=== PATIENT | male | born 1975 | race Asian ===

== ENCOUNTER → 2017-10-06 10:33 | Outpatient (CLI) | payer BC | END | disposition home or self-care (01) | LOC: D.CT 10:30 | DX: R31.9 Hematuria, unspecified (principal) ==

== ENCOUNTER → 2017-11-01 16:18 | Outpatient (CLI) | payer BC | END | disposition home or self-care (01) | LOC: D.CT 16:18 | DX: R91.1 Solitary pulmonary nodule (principal) ==

== ENCOUNTER → 2018-05-12 09:25 | Outpatient (CLI) | payer BC | END | disposition home or self-care (01) | LOC: D.US 09:00 | DX: R10.9 Unspecified abdominal pain (principal) ==

== ENCOUNTER → 2018-05-25 12:25 | Outpatient (CLI) | payer BC | END | disposition home or self-care (01) | LOC: D.NM 12:25 | DX: R93.89 Abnormal findings on diagnostic imaging of other specified body structures (principal); R10.11 Right upper quadrant pain ==

== ENCOUNTER → 2018-05-31 08:26 | Outpatient (CLI) | payer BC | END | disposition home or self-care (01) | LOC: D.MRI 08:26 | DX: N28.1 Cyst of kidney, acquired (principal) ==